=== PATIENT | female | born 1980 | race African-American/Black ===

== ENCOUNTER → 2024-05-26 | Day surgery (SDC) | payer OTHER | END | disposition home or self-care (01) | LOC: FRADUS-SUR 08:12 | PROVIDERS: ATTEND Obstetrics & Gynecology | PROC: 0HBT3ZX Excision of Right Breast, Percutaneous Approach, Diagnostic (ICD-10-PCS; principal; 2024-05-26) | PROC: 07B53ZX Excision of Right Axillary Lymphatic, Percutaneous Approach, Diagnostic (ICD-10-PCS; 2024-05-26) | PROC: BH40ZZZ Ultrasonography of Right Breast (ICD-10-PCS; 2024-05-26) | DX: C50.411 Malignant neoplasm of upper-outer quadrant of right female breast (principal); R59.0 Localized enlarged lymph nodes; N63.11 Unspecified lump in the right breast, upper outer quadrant | CPT/HCPCS: 19083; 76942-TC; 77065-TC; 87899; 88305-TC; 88313-TC; 88341-TC; 88342-TC; A4648 ==